=== PATIENT | male | born 1980 | race Caucasian/White ===

== ENCOUNTER 2024-05-31 22:36 | Emergency (ER) | payer BC, SELFPAY ==
[2024-05-31 22:37] VITALS: BMI 28.2
--- NOTE | 2024-05-31 23:19 | PC.NURSE ---
PT REPORTS HIS ABSCESS JUST POPPED SO HE DOES NOT WANT TO BE SEEN ANYMORE AND IS LEAVING.
--- NOTE | 2024-06-07 10:40 | PD.EDADDENDU ---
Emergency Room Addendum Addendum Narrative: When I looked for the patient to start evaluation, was told she left. Jose Miguel Oakes MD
== END 2024-06-01 00:15 | disposition left against medical advice (07) ==
PROVIDERS: Emergency Provider Emergency Medicine
DX: Z53.21 Procedure and treatment not carried out due to patient leaving prior to being seen by health care provider (principal)
CPT/HCPCS: 99281

== ENCOUNTER → 2024-07-17 | Outpatient (CLI) | payer BC, SELFPAY ==
[2024-07-17 11:58] LABS: Glucose Estimated Average 97 mg/dL (80-131)
[2024-07-17 12:03] LABS: Creatinine MALB Rnd Ur 109 mg/dL (30-125); Microalbumin, Random Urine < 3 mg/L (0-300)
[2024-07-17 12:08] LABS: Alanine Aminotransferase 20 U/L (10-49); Albumin, Serum 4.7 gm/dL (3.5-5.0); Alkaline Phosphatase 83 U/L (46-116); Anion Gap 5 (7-16); Aspartate Amino Transferase 20 U/L (0-34); BUN/Creatinine Ratio 14 Ratio (12-20); Bilirubin,Total 0.7 mg/dL (0.3-1.2); Blood Urea Nitrogen 18 mg/dL (9-23); Calcium 10.3 mg/dL (8.3-10.6); Calcium (Corrected) 10.3 mg/dL (8.5-10.1); Carbon Dioxide 30.9 mMol/L (20.0-31.0); Cardiac Risk Estimate 5.1 RATIO (4.0-6.7); Chloride 102 mMol/L (98-107); Cholesterol 198 mg/dL (132-200); Creatinine (Component) 1.3 mg/dL (0.6-1.3); Globulin 2.4 gm/dL (2.3-3.5); Glucose 86 mg/dL (74-106); HDL Cholesterol 39 mg/dL (40-60); LDL Cholesterol,Calculated 133 mg/dL (0-130); Osmolality,Calculated 276 (275-295); Potassium 4.5 mMol/L (3.4-5.1); Sodium 138 mMol/L (136-145); Total Protein 7.1 gm/dL (5.7-8.2); Triglycerides 132 mg/dL (30-150); eGFR > 60 See Note
== END | disposition home or self-care (01) ==
PROVIDERS: PCP Nurse Practitioner Family; Referring Provider Nurse Practitioner Family; Visit Provider Nurse Practitioner Family
DX: E11.9 Type 2 diabetes mellitus without complications (principal); E78.5 Hyperlipidemia, unspecified
CPT/HCPCS: 36415; 80053; 80061; 82043; 82570; 83036

== ENCOUNTER → 2025-01-06 | Outpatient (CLI) | payer BC, SELFPAY ==
--- NOTE | 2025-01-06 10:26 | XR_ITS ---
Examination: PA lateral chest 2 views TECHNIQUE: Upright PA lateral chest 2 views Date and time: January 06, 2025 1058 hours INDICATIONS: Coughing beginning 2 weeks ago. FINDINGS: Normal heart size The lungs are clear. The osseous structures are intact IMPRESSION: No active disease
== END | disposition home or self-care (01) ==
LOC: CDIM 10:13
PROVIDERS: PCP Family Medicine; Referring Provider Student in an Organized Health Care Education/Training Program; Visit Provider Student in an Organized Health Care Education/Training Program
DX: R05.9 Cough, unspecified (principal)
CPT/HCPCS: 71046

== ENCOUNTER → 2025-03-18 | Outpatient (CLI) | payer BC, SELFPAY ==
--- NOTE | 2025-03-18 09:16 | XR_ITS ---
EXAMINATION: PA lateral chest 2 views TECHNIQUE: Upright PA lateral chest 2 views Date and time: March 18, 2025, 0938 hours, comparison 01/06/2025 INDICATIONS: History pneumonia 2 months ago. FINDINGS: Normal heart size No lobar pneumonia or pulmonary edema Mild to moderate hyperexpansion IMPRESSION: Mild to moderate hyperexpansion
== END | disposition home or self-care (01) ==
LOC: CDIM 09:12
PROVIDERS: PCP Physician Assistant; Referring Provider Physician Assistant; Visit Provider Physician Assistant
DX: R91.8 Other nonspecific abnormal finding of lung field (principal)
CPT/HCPCS: 71046

== ENCOUNTER → 2025-04-14 | Outpatient (CLI) | payer BC, SELFPAY ==
--- NOTE | 2025-04-14 09:48 | XR_ITS ---
Examination: Foot bilateral, 6 views Technique: AP, oblique, lateral views each foot total 6 views Date and time of exam: April 14, 2025, 1058 hours INDICATION: Bilateral foot pain beginning 1 month ago. FINDINGS: Bony spur formation at the base of the right fifth metatarsal Moderate narrowing of the right first metatarsophalangeal joint Large right plantar posterior bony calcaneal spurs Moderate osteoarthritis tibiotalar and intertarsal joints right foot Moderate narrowing left first metatarsophalangeal joint Spur formation base left fifth metatarsal Large plantar posterior bony calcaneal spurs Moderate osteoarthritis left tibiotalar and intertarsal joints No erosive arthritis No fractures IMPRESSION: Significant bilateral osteoarthritis Bilateral large plantar posterior bony calcaneal spurs
== END | disposition home or self-care (01) ==
PROVIDERS: PCP Nurse Practitioner Family; Referring Provider Nurse Practitioner Family; Visit Provider Nurse Practitioner Family
DX: M19.072 Primary osteoarthritis, left ankle and foot (principal); M19.071 Primary osteoarthritis, right ankle and foot; M77.32 Calcaneal spur, left foot; M77.31 Calcaneal spur, right foot
CPT/HCPCS: 73630